=== PATIENT | male | born 2000 | race Caucasian/White ===

== ENCOUNTER 2023-01-12 03:08 | Emergency (ER) | payer SELFPAY ==
[~2023-01-12] VITALS: Ht 177.8 cm; Wt 71.4 kg
[2023-01-12 04:42] VITALS: BP 106/47
== END 2023-01-12 04:44 | disposition home or self-care (01) ==
LOC: ER 03:09
DX: S09.8XXA Other specified injuries of head, initial encounter (principal); W18.39XA Other fall on same level, initial encounter; Y93.89 Activity, other specified; Y92.89 Other specified places as the place of occurrence of the external cause; Y99.8 Other external cause status
CPT/HCPCS: 70450; 99284